=== PATIENT | male | born 1955 | race Caucasian/White ===

== ENCOUNTER 2017-04-04 21:36 | Emergency (ER) | payer BC ==
[2017-04-04] MEDS ORDERED: Ciprofloxacin 500 MG Tab PO ONE (21:57)
[2017-04-04] MEDS ORDERED: metroNIDAZOLE 500 MG Tab PO ONE ×2 (21:58→22:38)
--- NOTE | 2017-04-04 22:04 | EDM.PDOC ---
ED HPI GENERAL MEDICAL PROBLEM - General Chief Complaint: Gastrointestinal Problem Stated Complaint: DIVERTICULITIS Time Seen by Provider: 04/04/17 21:50 Source of Information: Reports: Patient, Old Records History Limitations: Reports: No Limitations - History of Present Illness INITIAL COMMENTS - FREE TEXT/NARRATIVE: 61 yo male presents with onset early this evening of LLQ abdominal pain. Pain is almost gone if he holds still, but is worse with movement or coughing. No fever. No nausea. Had a good BM today. Pain does not move. Has a pHx of diverticulitis and this feels exactly like that. Took acetaminophen 1000 mg earlier this evening for the pain. Also has a hx of colon CA and if being followed for that. Onset: Today Onset Date: 04/04/17 Onset Time: 19:00 Duration: Hour(s):, Getting Worse Location: Reports: Abdomen (LLQ) Quality: Reports: Ache, Dull Severity: Mild (at rest, worse with movement.) Improves with: Reports: Rest Worsens with: Reports: Movement Context: Reports: Other (Has known diverticular dz and a hx of diverticulitis.) Associated Symptoms: Reports: No Other Symptoms. Denies: Fever/Chills, Nausea/ Vomiting Treatments [employer]: Reports: Acetaminophen - Related Data Allergies Allergy/AdvReac Type Severity Reaction Status Date / Time No Known Allergies Allergy Verified 04/04/17 21:51 Home Meds: Home Meds NK [No Known Home Meds] 04/04/17 [History] Social & Family History - Tobacco Use Smoking Status *Q: Never Smoker Years of Tobacco use: 25 Used Tobacco, but Quit: Yes Month Tobacco Last Used: Nov 27 2000. Second Hand Smoke Exposure: No - Alcohol Use Days Per Week of Alcohol Use: 8 Number of Drinks Per Day: 0 Total Drinks Per Week: 0 - Recreational Drug Use Recreational Drug Use: No ED ROS GENERAL - Review of Systems Review Of Systems: See Below Constitutional: Reports: Other (feels a little flushed.) HEENT: Reports: No Symptoms Respiratory: Reports: No Symptoms Cardiovascular: Reports: No Symptoms Endocrine: Reports: No Symptoms GI/Abdominal: Reports: Abdominal Pain (LLQ). Denies: Black Stool, Bloody Stool , Constipation, Diarrhea, Decreased Appetite, Distension, Hematemesis, Hematochezia, Melena, Nausea, Vomiting : Reports: No Symptoms Musculoskeletal: Reports: No Symptoms Skin: Reports: No Symptoms Neurological: Reports: No Symptoms Psychiatric: Reports: No Symptoms ED EXAM, GI/ABD - Physical Exam Exam: See Below Exam Limited By: No Limitations General Appearance: Alert, WD/WN, No Apparent Distress Eyes: Bilateral: Normal Appearance, EOMI Ears: Normal External Exam, Normal Canal, Hearing Grossly Normal, Normal TMs Nose: Normal Inspection, Normal Mucosa, No Blood Throat/Mouth: Normal Inspection, Normal Lips, Normal Teeth, Normal Oropharynx, Normal Voice, No Airway Compromise Head: Atraumatic, Normocephalic Neck: Normal Inspection, Supple Respiratory/Chest: No Respiratory Distress, Lungs Clear, Normal Breath Sounds, No Accessory Muscle Use Cardiovascular: Regular Rate, Rhythm GI/Abdominal Exam: Normal Bowel Sounds, Soft, No Distention, Rebound (mild), Tender (LLQ with palpation.). No: Distended Back Exam: Normal Inspection. No: CVA Tenderness (R), CVA Tenderness (L) Extremities: Normal Inspection, Normal Range of Motion, Non-Tender, No Pedal Edema Neurological: Alert, Oriented, CN II-XII Intact, Normal Cognition, Normal Gait, No Motor/Sensory Deficits Psychiatric: Normal Affect, Normal Mood Skin Exam: Warm, Dry, Intact, Normal Color, No Rash Lymphatic: No Adenopathy Course - Vital Signs Last Recorded V/S: Last Vital Signs Temp 36.6 C 04/04/17 21:45 Pulse 104 H 04/04/17 21:45 Resp 20 04/04/17 21:45 BP 148/105 H 04/04/17 21:45 Pulse Ox 98 04/04/17 21:45 - Orders/Labs/Meds Orders: Active Orders 24 hr Category Date Time Status CRP [C-REACTIVE PROTEIN] [CHEM] Stat Lab 04/04/17 22:00 Received Labs: Laboratory Tests 04/04/17 Range/Units 22:00 WBC 9.8 (4.5-12.0) X10-3/uL RBC 4.73 (4.30-5.75) x10(6)uL Hgb 15.2 (11.5-15.5) g/dL Hct 44.6 (30.0-51.3) % MCV 94.4 (80-96) fL MCH 32.1 (27.7-33.6) pg MCHC 34.0 (32.2-35.4) g/dL RDW 14.0 (11.5-15.5) % Plt Count 218 (125-369) X10(3)uL Meds: Medications Discontinued Medications Generic Name Dose Route Start Last Admin Trade Name Gutierrez PRN Reason Stop Dose Admin Ciprofloxacin 500 mg 04/04/17 21:57 04/04/17 22:07 Ciprofloxacin Hcl PO 04/04/17 21:58 500 mg ONETIME ONE Administration Metronidazole 500 mg 04/04/17 21:58 04/04/17 22:07 Flagyl PO 04/04/17 21:59 500 mg ONETIME ONE Administration Departure - Departure Time of Disposition: 22:45 Disposition: Home, Self-Care 01 Condition: Fair Clinical Impression: Diverticulitis - Discharge Information Referrals: Reid Milan MD [Primary Care Provider] - Forms: ED Department Discharge - My Orders Last 24 Hours: My Active Orders 04/04/17 22:00 CRP [C-REACTIVE PROTEIN] [CHEM] Stat - Assessment/Plan Last 24 Hours: My Active Orders 04/04/17 22:00 CRP [C-REACTIVE PROTEIN] [CHEM] Stat
[2017-04-04 23:06] VITALS: BP 135/96
== END 2017-04-04 22:52 | disposition home or self-care (01) ==
LOC: FB.ED 21:36
DX: K57.92 Diverticulitis of intestine, part unspecified, without perforation or abscess without bleeding (principal)
CPT/HCPCS: 36415; 85027; 86140; 99284; A9270

== ENCOUNTER 2018-01-22 09:22 | Observation (INO) | payer BC ==
[2018-01-22] MEDS: Sodium Chloride 0.9% 10 ML Syringe FLUSH PRN ×3 (09:30→11:54)
[2018-01-22] MEDS ORDERED: Labetalol 20 MG/4 ML Syringe IVPUSH ONE ×2 (09:34→11:36)
--- NOTE | 2018-01-22 09:38 | EDM.PDOC ---
ED HPI GENERAL MEDICAL PROBLEM - General Stated Complaint: CONFUSSION- LIGHT HEADED Time Seen by Provider: 01/22/18 09:22 Source of Information: Reports: Patient, Family History Limitations: Reports: Altered Mental Status - History of Present Illness INITIAL COMMENTS - FREE TEXT/NARRATIVE: 62 y.o.m with h/o Colon CA with mets to liver came to the ed with his to the ed because her , the pt, was confused. Pt's BP was 185/155 on arrival. Pt felt mildly nauseated, no C/P No H/A no F/C no neurological symptoms , no focal weakness.no other acute medical issues. Pt underwent chemoTx recently BP 185/154 Pulse 91 Temp 36.7 RR 18 Onset Date: 01/22/18 Onset Time: 07:00 Duration: Intermittent Location: Reports: Head Quality: Reports: Other (confused) Improves with: Reports: Rest Worsens with: Reports: Movement Context: Reports: Other (HTN.Colon CA) Associated Symptoms: Reports: Confusion, Nausea/Vomiting - Related Data Allergies Allergy/AdvReac Type Severity Reaction Status Date / Time No Known Allergies Allergy Verified 01/22/18 09:41 Home Meds: Home Meds Aspirin 81 mg PO DAILY 01/22/18 [History] Losartan/Hydrochlorothiazide [Losartan-HCTZ 50-12.5 MG] 1 each PO DAILY #10 tablet 01/22/18 [Rx] Multivitamin [Multi-Day Vitamins] 1 tab PO DAILY 01/22/18 [History] Tolterodine Tartrate [Tolterodine Tartrate ER] 4 mg PO DAILY 01/22/18 [History] Past Medical History Cardiovascular History: Reports: Hypertension, Other (See Below) Other Cardiovascular History: Was on BP medication for hypertension prior to chemotherapy treatments. Gastrointestinal History: Reports: Diverticulosis, Other (See Below) Other Gastrointestinal History: Known diverticulosis for about 15 years. Oncologic (Cancer) History: Reports: Other (See Below) Other Oncologic History: Colorectal Cancer with metastasis. - Past Surgical History Other GI Surgeries/Procedures: States he has received chemotherapy for colorectal cancer couple years past. Then had surgery in October 2016 for liver metastasis and again in December 2016 for lung metastasis. The follow up CT showed he continued to have diverticulosis. Neurological Surgical History: Reports: Other (See Below) Other Neurological Surgeries/Procedures: Neck fusion 2013. ED ROS GENERAL - Review of Systems Review Of Systems: Unable To Obtain (confusion) ED EXAM, NEURO - Physical Exam Exam: See Below Exam Limited By: Altered Mental Status General Appearance: Alert, WD/WN, No Apparent Distress, Mild Distress Eye Exam: Bilateral Eye: Normal Inspection Ears: Normal External Exam, Normal Canal Nose: Normal Inspection, Normal Mucosa, No Blood Throat/Mouth: Normal Inspection, Normal Lips, Normal Voice, No Airway Compromise Head Exam: Atraumatic, Normocephalic Neck: Normal Inspection, Supple, Non-Tender, Full Range of Motion Respiratory/Chest: No Respiratory Distress, Lungs Clear, Normal Breath Sounds, Chest Non-Tender Cardiovascular: Normal Peripheral Pulses, Regular Rate, Rhythm, No Edema, No Gallop, No JVD, No Murmur, No Rub GI/Abdominal: Normal Bowel Sounds, Soft, Non-Tender, No Organomegaly, No Distention, No Abnormal Bruit, No Mass, Pelvis Stable (Male) Exam: Deferred Rectal (Males) Exam: Deferred Neurological: Alert, Normal Mood/Affect, Normal Dorsiflexion, CN II-XII Intact, Normal Gait, No Motor/Sensory Deficits, Oriented x 3, Difficulty Walking Back Exam: Normal Inspection, Full Range of Motion Extremities: Normal Inspection, Normal Range of Motion, Non-Tender, No Pedal Edema, Normal Capillary Refill Psychiatric: Normal Affect, Normal Mood Skin Exam: Warm, Dry, Intact, Normal Color, No Rash EKG INTERPRETATION EKG Date: 01/22/18 Time: 09:35 Rhythm: NSR Rate (Beats/Min): 91 [place]: Normal P-Wave: Present QRS: Normal ST-T: Normal QT: Normal Comparison: NA - No Prior EKG Course - Vital Signs Text/Narrative:: 62 y.o.m with h/o Colon CA with mets to liver came to the ed with his to the ed because her , the pt, was confused. Pt's BP was 185/155 on arrival. Pt felt mildly nauseated, no C/P No H/A no F/C no neurological symptoms , no focal weakness.no other acute medical issues. Pt underwent chemoTx recently BP 185/154 Pulse 91 Temp 36.7 RR 18 PE: WNWD W M with confusion to situation, time and person Labs: CBC/BMP WNL UA was neg Chol/HDL was elevated Tricl was elevated Ca 8.4 Impression: Hypertensive encephalopathy H/O Colon CA with mets to liver, on chemaTx Tx: Labetotol Reexam: Improved BP was 155/86 ofter tx. However, before the pt was d/c'd, he felt dizzy and confused again. His recheck BP was 175/87 12.30 pm Consultation: Dr. Milan, Hospitalist: Accepted the pt for admission to obs Plan: Admit to hong. Last Recorded V/S: Last Vital Signs Temp 36.6 C 01/22/18 14:05 Pulse 88 01/22/18 14:05 Resp 20 01/22/18 14:05 BP 119/83 01/22/18 14:05 Pulse Ox 95 01/22/18 14:05 Orthostatic Blood Pressure [ 149/100 Standing] Orthostatic Blood Pressure [ 144/97 Sitting] Orthostatic Blood Pressure [ 151/98 Supine] - Orders/Labs/Meds Orders: Active Orders 24 hr Category Date Time Status Orthostatic Vital Signs [RC] ASDIRECTED Care 01/22/18 10:24 Active Brain w wo Cont [MR] Stat Exams 01/22/18 11:25 Taken Head wo Cont [CT] Stat Exams 01/22/18 09:29 Taken UA W/MICROSCOPIC [URIN] Stat Lab 01/22/18 10:39 Ordered Sodium Chloride 0.9% [Saline Flush] Med 01/22/18 09:34 Active 10 ml FLUSH ASDIRECTED PRN Peripheral IV Insertion Adult [OM.PC] Routine Oth 01/22/18 09:34 Ordered EKG 12 Lead [EK] Routine Ther 01/22/18 09:29 Ordered Medication Orders Acetaminophen (Tylenol) 650 mg PO Q4H PRN PRN Reason: Pain Last Admin: 01/22/18 14:44 Dose: 650 mg HCTZ/Losartan Potassium (Hyzaar 100-25 Mg) 0.5 tab PO DAILY KRISTOPHER Last Admin: 01/22/18 14:30 Dose: Sodium Chloride (Saline Flush) 10 ml FLUSH ASDIRECTED PRN PRN Reason: Keep Vein Open Last Admin: 01/22/18 11:54 Dose: 10 ml Admin: 01/22/18 11:45 Dose: 10 ml Admin: 01/22/18 09:30 Dose: 10 ml Labs: Laboratory Tests 01/22/18 01/22/18 01/22/18 Range/Units 09:55 09:55 09:55 WBC 6.1 (4.5-12.0) X10-3/uL RBC 5.01 (4.30-5.75) x10(6)uL Hgb 16.3 H (11.5-15.5) g/dL Hct 48.0 (30.0-51.3) % MCV 95.9 (80-96) fL MCH 32.5 (27.7-33.6) pg MCHC 33.8 (32.2-35.4) g/dL RDW 12.9 (11.5-15.5) % Plt Count 218 (125-369) X10(3)uL MPV 7.4 (7.4-10.4) fL Neut % (Auto) 46.2 (46-82) % Lymph % (Auto) 35.4 (13-37) % [place] % (Auto) 12.6 H (4-12) % Eos % (Auto) 5 (1.0-5.0) % Baso % (Auto) 1 (0-2) % Neut # (Auto) 2.9 (1.6-8.3) # Lymph # (Auto) 2.1 (0.6-5.0) # [place] # (Auto) 0.8 (0.0-1.3) # Eos # (Auto) 0.3 (0.0-0.8) # Baso # (Auto) 0.0 (0.0-0.2) # PT 9.8 (8.7-11.1) INR 1.01 (0.89-1.13) Sodium 138 (135-145) mmol/L Potassium 4.3 (3.5-5.3) mmol/L Chloride 101 (100-110) mmol/L Carbon Dioxide 31 (21-32) mmol/L BUN 14 (7-18) mg/dL Creatinine 1.1 (0.70-1.30) mg/dL Est Cr Clr Drug Dosing TNP Estimated GFR (MDRD) > 60 (>60) BUN/Creatinine Ratio 12.7 (9-20) Glucose 115 (80-116) mg/dL Calcium 8.4 L (8.6-10.2) mg/dL Triglycerides (15-150) mg/dL Cholesterol (50-200) mg/dL LDL Cholesterol Direct (60-130) mg/dL HDL Cholesterol (40-75) mg/dL Cholesterol/HDL Ratio (0-5) Urine Color (YELLOW) Urine Appearance (CLEAR) Urine pH (5.0-6.5) Ur Specific [place] (1.010-1.025) Urine Protein (NEGATIVE) mg/dL Urine Glucose (UA) (NEGATIVE) mg/dL Urine Ketones (NEGATIVE) mg/dL Urine Occult Blood (NEGATIVE) Urine Nitrite (NEGATIVE) Urine Bilirubin (NEGATIVE) Urine Urobilinogen (NEGATIVE) mg/dL Ur Leukocyte Esterase (NEGATIVE) Urine WBC (0) Ur Squamous Epith Cells (NS,R,O) Urine Bacteria (NS) 01/22/18 01/22/18 Range/Units 09:55 10:39 WBC (4.5-12.0) X10-3/uL RBC (4.30-5.75) x10(6)uL Hgb (11.5-15.5) g/dL Hct (30.0-51.3) % MCV (80-96) fL MCH (27.7-33.6) pg MCHC (32.2-35.4) g/dL RDW (11.5-15.5) % Plt Count (125-369) X10(3)uL MPV (7.4-10.4) fL Neut % (Auto) (46-82) % Lymph % (Auto) (13-37) % [place] % (Auto) (4-12) % Eos % (Auto) (1.0-5.0) % Baso % (Auto) (0-2) % Neut # (Auto) (1.6-8.3) # Lymph # (Auto) (0.6-5.0) # [place] # (Auto) (0.0-1.3) # Eos # (Auto) (0.0-0.8) # Baso # (Auto) (0.0-0.2) # PT (8.7-11.1) INR (0.89-1.13) Sodium (135-145) mmol/L Potassium (3.5-5.3) mmol/L Chloride (100-110) mmol/L Carbon Dioxide (21-32) mmol/L BUN (7-18) mg/dL Creatinine (0.70-1.30) mg/dL Est Cr Clr Drug Dosing Estimated GFR (MDRD) (>60) BUN/Creatinine Ratio (9-20) Glucose (80-116) mg/dL Calcium (8.6-10.2) mg/dL Triglycerides 195 H (15-150) mg/dL Cholesterol 197 (50-200) mg/dL LDL Cholesterol Direct 126 (60-130) mg/dL HDL Cholesterol 38 L (40-75) mg/dL Cholesterol/HDL Ratio 5.2 H (0-5) Urine Color Yellow (YELLOW) Urine Appearance Clear (CLEAR) Urine pH 5.0 (5.0-6.5) Ur Specific [place] 1.020 (1.010-1.025) Urine Protein Negative (NEGATIVE) mg/dL Urine Glucose (UA) Normal (NEGATIVE) mg/dL Urine Ketones Negative (NEGATIVE) mg/dL Urine Occult Blood Negative (NEGATIVE) Urine Nitrite Negative (NEGATIVE) Urine Bilirubin Negative (NEGATIVE) Urine Urobilinogen Normal (NEGATIVE) mg/dL Ur Leukocyte Esterase Negative (NEGATIVE) Urine WBC 0-5 (0) Ur Squamous Epith Cells Occasional (NS,R,O) Urine Bacteria Few H (NS) Meds: Medications Generic Name Dose Route Start Last Admin Trade Name Freq PRN Reason Stop Dose Admin Acetaminophen 650 mg 01/22/18 14:31 01/22/18 14:44 Tylenol PO 650 mg Q4H PRN Administration Pain HCTZ/Losartan Potassium 0.5 tab 01/22/18 14:00 01/22/18 14:30 Hyzaar 100-25 Mg PO Not Given DAILY KRISTOPHER Sodium Chloride 10 ml 01/22/18 09:34 01/22/18 11:54 Saline Flush FLUSH 10 ml ASDIRECTED PRN Administration Keep Vein Open Discontinued Medications Generic Name Dose Route Start Last Admin Trade Name Freq PRN Reason Stop Dose Admin Gadoteridol 20 ml 01/22/18 12:15 01/22/18 12:31 Prohance IV 20 ml . DIRECTED KRISTOPHER Administration HCTZ/Losartan Potassium 1 tab 01/22/18 12:45 Hyzaar 100-25 Mg PO DAILY KRISTOPHER Labetalol HCl 10 mg 01/22/18 09:34 01/22/18 09:55 Normodyne IVPUSH 01/22/18 09:35 10 mg ONETIME ONE Administration Protocol Labetalol HCl 10 mg 01/22/18 11:36 01/22/18 11:45 Normodyne IVPUSH 01/22/18 11:37 10 mg ONETIME ONE Administration Protocol Lorazepam 0.5 mg 01/22/18 11:43 01/22/18 11:50 Ativan IVPUSH 01/22/18 11:44 0.5 mg ONETIME STA Administration Ondansetron HCl 8 mg 01/22/18 10:18 01/22/18 11:16 Zofran IVPUSH 01/22/18 10:19 Not Given ONETIME STA Departure - Departure Time of Disposition: 11:14 Disposition: Refer to Observation Condition: Good Clinical Impression: Hypertensive encephalopathy - Discharge Information - My Orders Last 24 Hours: My Active Orders 01/22/18 09:29 Head wo Cont [CT] Stat EKG 12 Lead [EK] Routine 01/22/18 09:34 Sodium Chloride 0.9% [Saline Flush] 10 ml FLUSH ASDIRECTED PRN Peripheral IV Insertion Adult [OM.PC] Routine 01/22/18 10:24 Orthostatic Vital Signs [RC] ASDIRECTED 01/22/18 10:39 UA W/MICROSCOPIC [URIN] Stat 01/22/18 11:25 Brain w wo Cont [MR] Stat - Assessment/Plan Last 24 Hours: My Active Orders 01/22/18 09:29 Head wo Cont [CT] Stat EKG 12 Lead [EK] Routine 01/22/18 09:34 Sodium Chloride 0.9% [Saline Flush] 10 ml FLUSH ASDIRECTED PRN Peripheral IV Insertion Adult [OM.PC] Routine 01/22/18 10:24 Orthostatic Vital Signs [RC] ASDIRECTED 01/22/18 10:39 UA W/MICROSCOPIC [URIN] Stat 01/22/18 11:25 Brain w wo Cont [MR] Stat
[2018-01-22] MEDS ORDERED: Ondansetron 4 MG/2 ML SDV IVPUSH STA (10:18)
[2018-01-22] MEDS ORDERED: LORazepam 2 MG/ML SDV IVPUSH STA (11:43)
[2018-01-22] MEDS ORDERED: Gadoteridol 279.3 MG/ML 20 ML SDV IV SCH (12:15)
[2018-01-22] MEDS ORDERED: Hydrochlorothiazide/Losartan 25-100 MG Tab PO SCH (12:45)
[2018-01-22] MEDS: Hydrochlorothiazide/Losartan 25-100 MG Tab PO SCH ×2 (14:30→19:11)
[2018-01-22] MEDS: Acetaminophen 325 MG Tab PO PRN (14:44)
[2018-01-22] MEDS: Aspirin 81 MG Tab.Chew PO SCH (20:25)
[2018-01-22] MEDS: Tolterodine 4 MG Cap.ER PO SCH (20:25)
[2018-01-23] MEDS: Acetaminophen 325 MG Tab PO PRN ×2 (02:48→08:16)
[2018-01-23] MEDS: Aspirin 81 MG Tab.Chew PO SCH (08:15)
[2018-01-23] MEDS: Hydrochlorothiazide/Losartan 25-100 MG Tab PO SCH (08:16)
[2018-01-23] MEDS: Tolterodine 4 MG Cap.ER PO SCH (08:16)
[2018-01-23 12:01] VITALS: BP 137/94
--- NOTE | 2018-01-23 15:56 | HP ---
ADMISSION DATE: 01/22/2018 HISTORY OF PRESENT ILLNESS: Harshad Pendleton is a 62-year-old male, [place] resident, was seen at ER at [facility] with an acute onset of confusional state. left this morning. No particular complaints or concerns. had been at work for about 20 minutes, called wondering about a shirt that was hanging. Explanation was that it needed to be dried and ironed. Discussion about the evening's event, i.e. a neighborhood democrat, were discussed. The patient had little recall of the event and reminded appropriately. Called back a few minutes later to his at work and stated he did not feel well. He had nausea, fatigue, lethargic, headache, and was confused. Acute in onset. Seen at [facility], at that time blood pressure was markedly elevated, he had absent orientation to time, place, person, circumstances, and who was our president. Blood pressure was elevated and was given intravenous dose of beta- nicky with improving symptoms. Laboratory studies were performed and all were satisfactory. CT without contrast was normal. MRI without contrast was normal. History of metastatic colon cancer, under surveillance at [facility], Dr. Arline Ruiz provider of record. The second dose of intravenous beta nicky was applied and blood pressure improved, was admitted for observation. At the time of my examination in the hospital, he was clear, lucent, and appropriate without complaints. He does have a history of migraine or migraine equivalents, particularly ophthalmic in nature. None of similar issues. Cardiovascular risk factors, of course, are concern of age, previous cancer. Nonsmoker, not diabetic and not hypertensive, but previous history of high blood pressure. Treatment in the past had been for some duration since he had been off it. Previous laboratory studies reviewed, [facility], no blood sugar greater than 107. Blood pressure normalized, observation and intervention. Present daily medications include Detrol LA 4 mg one p.o. daily, BPH, and multivitamin. Past history is significant for diagnosed about 3 years ago of colon cancer. Surgical intervention, recurrence of left lung, underwent lung cancer lobectomy at [place]. Things have been quiet since that time. Followup colonoscopies have been comfortable. There has been a mild elevation of his CE antigen on 12/24/2017. One year ago, it was 17.5; 7 months ago of 2.3; 4 months ago of 4.7; and in December 2017 of 7.1. ALLERGIES: No medication, environmental, or latex allergies. PAST MEDICAL HISTORY: Significant for previous colon cancer surgery and recent lung resection for cancer. He has had a cervical fusion, C4 through C6, in 2013; most recent endoscopy by our records, 08/18/2016, normal. No chronic illnesses of consequence. SOCIAL HISTORY: Retired from the building industry. in good health, as are children. Former smoker, quit in 2000, [id number] history. Minimal alcohol consumption. No illicit drug use. FAMILY HISTORY: Negative for early heart disease, diabetes mellitus, or inheritable cancers. REVIEW OF SYSTEMS: CONSTITUTIONAL: Feeling well at the time of my exam. The patient oriented to time, place, and person. EYES: Sees well. EARS: Hears well. OROPHARYNX: Intact dentition. : Good voiding pattern. Nocturia x1. No blood in urine. SKIN: No open sores or lesions. CARDIOVASCULAR: Denies chest pain, palpitations, or syncope. GI: Bowels have been fine. No blood in the stools. Regular predictable stools. NEUROLOGIC: Please see HPI. History of migraines. MUSCULOSKELETAL: Repeat generalized joint complaints, particularly neck. PHYSICAL EXAMINATION: VITAL SIGNS: Stable. 119 to 134 systolic and 72 to 84 diastolic. Pulse 85, respirations 16, O2 saturation 94%, and 36.6. GENERAL: Appears comfortable. Orientated and appropriate. Speech was fluent. HEENT: Revealed funduscopic benign. Bright TMs. Clear nasal discharge. Mouth and oropharynx, clear. Tongue midline. Good gag reflex. NEUROLOGIC: Cranial nerves 2 through 12 were intact. NECK: Benign. Thyroid small. No adenopathy. Posterior neck, surgical scar, well healed. No carotid bruits. CHEST: Clear in all lung escobar. No adventitious sounds. HEART: Regular without ectopy or murmur. BREASTS: Normal male breasts. Port in the right upper chest wall identified. ABDOMEN: Large surgical scar, well-healed, without conflict. Umbilical hernia. Little weakness to the in portion of the surgical wound. No hepatosplenomegaly. : Normal male genitalia. RECTAL: Deferred. EXTREMITIES: Well perfused. Reflex symmetric. Sensation intact. Gait and station appropriate. ASSESSMENT: Acute confusional state; reactive blood pressure, likely, normal blood pressure ratio. PLAN: We will observe overnight, watch for any neurological symptoms of consequence. Watch his blood pressure closely. Proceed accordingly. /[id number] EMELY/INGA
--- NOTE | 2018-01-24 07:39 | DISCH ---
DISCHARGE DATE: 01/23/2018 HOSPITAL COURSE: Harshad Pendleton is a 62-year-old male, seen today for followup. He was observed overnight. He had a brief episode, maybe an hour and a half, of acute confusional state. Origin undetermined. CT normal and MRI normal. Laboratory studies unremarkable. He has had no arrhythmias and has been well overnight. Blood pressures have been satisfactory. PHYSICAL EXAMINATION: GENERAL: The patient was oriented to time, place, and person. NECK: Benign. Thyroid small. No carotid bruits. CHEST: Clear in all lung escobar. HEART: Regular. ABDOMEN: Benign. ASSESSMENT: Acute confusional state, brief duration; elevated blood pressure, likely reactive. PLAN: All looks well. Salt restriction, daily exercise, and complementary behavior. He will get a home blood pressure monitor machine. He will come in next week each day for blood pressure. We will do an ultrasound of his kidneys to look for renal artery stenosis and ultrasound of his carotids. In the meantime, continue aspirin 81 mg one daily, along with Detrol and appropriate care. /[id number] EMELY/INGA
== END 2018-01-23 11:55 | disposition home or self-care (01) ==
LOC: FB.ED 09:22 → UNDOADMOB 12:31 → FB.MS 12:31
PROVIDERS: ADMIT Family Medicine; ATTEND Family Medicine
DX: R41.0 Disorientation, unspecified (principal); I10 Essential (primary) hypertension; Z79.82 Long term (current) use of aspirin; Z87.891 Personal history of nicotine dependence
CPT/HCPCS: 36415; 70450; 70553; 80048; 80061; 81001; 85025; 85610; 93005; 96374; 96375; 96376; 99285; A9270; A9579; G0378; J2060; J7050

== ENCOUNTER 2019-01-05 04:24 | Emergency (ER) | payer OTHER ==
[2019-01-05] MEDS ORDERED: Sodium Chloride 0.9% 10 ML Syringe FLUSH PRN (04:49)
--- NOTE | 2019-01-05 04:58 | EDM.PDOC ---
ED HPI GENERAL MEDICAL PROBLEM - General Chief Complaint: Abdominal Pain Stated Complaint: SIDE PAIN Time Seen by Provider: 01/05/19 04:53 Source of Information: Reports: Patient History Limitations: Reports: No Limitations - History of Present Illness INITIAL COMMENTS - FREE TEXT/NARRATIVE: Presents with LLQ Abdominal pain, onset yesterday, denies N/V/D. Hospitalized 2 months ago @ [facility] for diverticular abscess, treated conservatively with antibiotics, no procedures were performed. Endorses chills, no fever. Currently being treated with chemotherapy for stage 4 colon cancer. Currently on Zithromax for URI. Onset Date: 01/04/19 Location: Reports: Abdomen Quality: Reports: Dull Severity: Moderate Associated Symptoms: Reports: Cough LLQ Pain Score (Numeric/FACES): 5 - Related Data Allergies Allergy/AdvReac Type Severity Reaction Status Date / Time No Known Allergies Allergy Verified 01/05/19 04:33 Home Meds: Home Meds Alclometasone Dipropionate 1 gm TP BID 01/05/19 [History] Azithromycin [Zithromax] 250 mg PO DAILY 01/05/19 [History] Fluocinonide [Lidex 0.05% Crm] 1 applic BID 01/05/19 [History] Gabapentin [Neurontin] 300 mg BEDTIME 01/05/19 [History] Polyethylene Glycol 3350 17 gm DAILY 01/05/19 [History] Tamsulosin [Tamsulosin 24 Hr] 0.4 mg PO BEDTIME 01/05/19 [History] Warfarin [Coumadin] 1.25 mg PO SUTUWETHSA 01/05/19 [History] cephALEXin [Cephalexin] 500 mg BID 01/05/19 [History] Past Medical History HEENT History: Reports: Impaired Vision Cardiovascular History: Reports: Blood Clots/VTE/DVT, Hypertension, Other (See Below). Denies: CAD Other Cardiovascular History: Was on BP medication for hypertension prior to chemotherapy treatments. Respiratory History: Reports: PE Gastrointestinal History: Reports: Diverticulosis, Other (See Below) Other Gastrointestinal History: Known diverticulosis for about 15 years. Oncologic (Cancer) History: Reports: Other (See Below) Other Oncologic History: Colorectal Cancer with metastasis to liver and lungs. - Past Surgical History Other GI Surgeries/Procedures: States he has received chemotherapy for colorectal cancer couple years past. Then had surgery in October 2016 for liver metastasis and again in December 2016 for lung metastasis. The follow up CT showed he continued to have diverticulosis. Neurological Surgical History: Reports: Other (See Below) Other Neurological Surgeries/Procedures: Neck fusion 2013. Social & Family History - Family History Family Medical History: Noncontributory - Tobacco Use Smoking Status *Q: Former Smoker Tobacco Use Within Last Twelve Months: No - Caffeine Use Caffeine Use: Reports: Coffee ED ROS GENERAL - Review of Systems Review Of Systems: ROS reveals no pertinent complaints other than HPI. ED EXAM, GI/ABD - Physical Exam Exam: See Below Exam Limited By: No Limitations General Appearance: Alert, WD/WN, No Apparent Distress Ears: Normal External Exam Nose: Normal Inspection Throat/Mouth: No Airway Compromise Head: Atraumatic, Normocephalic Neck: Normal Inspection Respiratory/Chest: No Respiratory Distress, Rhonchi Cardiovascular: No Murmur, Tachycardia GI/Abdominal Exam: Normal Bowel Sounds, Soft, No Distention, Tender (mild LLQ) Neurological: Alert, Normal Cognition, No Motor/Sensory Deficits Psychiatric: Normal Affect, Normal Mood EKG INTERPRETATION EKG Date: 01/05/19 Time: 04:50 Rhythm: Other (sinus tachycardia) Rate (Beats/Min): 118 [place]: Normal P-Wave: Present QRS: Normal ST-T: Normal QT: Normal Course - Vital Signs Last Recorded V/S: Last Vital Signs Temp 37.6 C 01/05/19 06:31 Pulse 110 H 01/05/19 06:31 Resp 18 01/05/19 06:31 BP 119/76 01/05/19 06:31 Pulse Ox 96 01/05/19 06:31 - Orders/Labs/Meds Orders: Active Orders 24 hr Category Date Time Status EKG Documentation Completion [RC] ASDIRECTED Care 01/05/19 04:49 Active Chest Abdomen Pelvis w Cont [CT] Stat Exams 01/05/19 04:58 Taken CULTURE BLOOD [BC] Urgent Lab 01/05/19 04:45 Received CULTURE BLOOD [BC] Urgent Lab 01/05/19 05:06 Received Piperacillin/Tazobactam [Zosyn] 3.375 gm Med 01/05/19 07:00 Active Sodium Chloride 0.9% [Normal Saline] 50 ml IV Q6H Sodium Chloride 0.9% [Normal Saline] 1,000 ml Med 01/05/19 06:51 Active IV .BOLUS Sodium Chloride 0.9% [Saline Flush] Med 01/05/19 04:49 Active 10 ml FLUSH ASDIRECTED PRN Blood Culture x2 Reflex Set [OM.PC] Urgent Oth 01/05/19 04:50 Ordered Saline Lock Insert [OM.PC] Routine Oth 01/05/19 04:49 Ordered EKG 12 Lead [EK] Stat Ther 01/05/19 04:49 Ordered Medication Orders Piperacillin Sod/Tazobactam (Sod 3.375 gm/ Sodium Chloride) 50 mls @ 100 mls/ hr IV Q6H KRISTOPHER Last Admin: 01/05/19 07:04 Dose: 100 mls/hr Sodium Chloride (Normal Saline) 1,000 mls @ 500 mls/hr IV .BOLUS ONE Stop: 01/05/19 08:50 Last Admin: 01/05/19 06:55 Dose: 500 mls/hr Sodium Chloride (Saline Flush) 10 ml FLUSH ASDIRECTED PRN PRN Reason: Keep Vein Open Last Admin: 01/05/19 05:05 Dose: 10 ml Labs: Laboratory Tests 01/05/19 01/05/19 01/05/19 Range/Units 04:45 04:45 04:45 WBC 14.0 H (4.5-12.0) X10-3/uL RBC 5.07 (4.30-5.75) x10(6)uL Hgb 16.3 (13.5-17.8) g/dL Hct 48.6 (30.0-51.3) % MCV 95.8 (80-96) fL MCH 32.2 (27.7-33.6) pg MCHC 33.6 (32.2-35.4) g/dL RDW 14.8 (11.5-15.5) % Plt Count 171 (125-369) X10(3)uL MPV 7.5 (7.4-10.4) fL Neut % (Auto) 67.5 (46-82) % Lymph % (Auto) 18.1 (13-37) % Banner % (Auto) 8.1 (4-12) % Eos % (Auto) 2 (1.0-5.0) % Baso % (Auto) 4 H (0-2) % Neut # (Auto) 9.5 H (1.6-8.3) # Lymph # (Auto) 2.5 (0.6-5.0) # Banner # (Auto) 1.1 (0.0-1.3) # Eos # (Auto) 0.3 (0.0-0.8) # Baso # (Auto) 0.6 H (0.0-0.2) # PT (8.7-11.1) INR (0.89-1.13) Sodium 139 (135-145) mmol/L Potassium 4.1 (3.5-5.3) mmol/L Chloride 102 (100-110) mmol/L Carbon Dioxide 26 (21-32) mmol/L BUN 12 (7-18) mg/dL Creatinine 1.3 (0.70-1.30) mg/dL Est Cr Clr Drug Dosing 59.67 mL/min Estimated GFR (MDRD) 56 L (>60) BUN/Creatinine Ratio 9.2 (9-20) Glucose 137 H (80-116) mg/dL Lactic Acid 1.5 (0.4-2.2) mmol/L Calcium 8.6 (8.6-10.2) mg/dL Total Bilirubin 0.8 (0.1-1.3) mg/dL AST 19 (5-25) IU/L ALT 34 (12-36) U/L Alkaline Phosphatase 104 (56-112) IU/L Total Protein 7.2 (6.0-8.0) g/dL Albumin 3.6 (3.2-4.6) g/dL Globulin 3.6 g/dL Albumin/Globulin Ratio 1.0 Amylase 70 (25-115) U/L Urine Color (YELLOW) Urine Appearance (CLEAR) Urine pH (5.0-6.5) Ur Specific Coy (1.010-1.025) Urine Protein (NEGATIVE) mg/dL Urine Glucose (UA) (NORMAL) mg/dL Urine Ketones (NEGATIVE) mg/dL Urine Occult Blood (NEGATIVE) Urine Nitrite (NEGATIVE) Urine Bilirubin (NEGATIVE) Urine Urobilinogen (NEGATIVE) mg/dL Ur Leukocyte Esterase (NEGATIVE) Urine RBC (0-5) Urine WBC (0-5) Ur Squamous Epith Cells (NS,R,O) Urine Bacteria (NS) Urine Mucus (NS) 01/05/19 01/05/19 Range/Units 04:45 05:20 WBC (4.5-12.0) X10-3/uL RBC (4.30-5.75) x10(6)uL Hgb (13.5-17.8) g/dL Hct (30.0-51.3) % MCV (80-96) fL MCH (27.7-33.6) pg MCHC (32.2-35.4) g/dL RDW (11.5-15.5) % Plt Count (125-369) X10(3)uL MPV (7.4-10.4) fL Neut % (Auto) (46-82) % Lymph % (Auto) (13-37) % Banner % (Auto) (4-12) % Eos % (Auto) (1.0-5.0) % Baso % (Auto) (0-2) % Neut # (Auto) (1.6-8.3) # Lymph # (Auto) (0.6-5.0) # Banner # (Auto) (0.0-1.3) # Eos # (Auto) (0.0-0.8) # Baso # (Auto) (0.0-0.2) # PT 23.2 H (8.7-11.1) INR 2.41 H (0.89-1.13) Sodium (135-145) mmol/L Potassium (3.5-5.3) mmol/L Chloride (100-110) mmol/L Carbon Dioxide (21-32) mmol/L BUN (7-18) mg/dL Creatinine (0.70-1.30) mg/dL Est Cr Clr Drug Dosing mL/min Estimated GFR (MDRD) (>60) BUN/Creatinine Ratio (9-20) Glucose (80-116) mg/dL Lactic Acid (0.4-2.2) mmol/L Calcium (8.6-10.2) mg/dL Total Bilirubin (0.1-1.3) mg/dL AST (5-25) IU/L ALT (12-36) U/L Alkaline Phosphatase (56-112) IU/L Total Protein (6.0-8.0) g/dL Albumin (3.2-4.6) g/dL Globulin g/dL Albumin/Globulin Ratio Amylase (25-115) U/L Urine Color Yellow (YELLOW) Urine Appearance Clear (CLEAR) Urine pH 5.0 (5.0-6.5) Ur Specific Coy 1.020 (1.010-1.025) Urine Protein Trace (NEGATIVE) mg/dL Urine Glucose (UA) Normal (NORMAL) mg/dL Urine Ketones 15 H (NEGATIVE) mg/dL Urine Occult Blood Moderate H (NEGATIVE) Urine Nitrite Negative (NEGATIVE) Urine Bilirubin Small H (NEGATIVE) Urine Urobilinogen Normal (NEGATIVE) mg/dL Ur Leukocyte Esterase Negative (NEGATIVE) Urine RBC 5-10 H (0-5) Urine WBC 0-5 (0-5) Ur Squamous Epith Cells Occasional (NS,R,O) Urine Bacteria Few H (NS) Urine Mucus Moderate H (NS) Meds: Medications Generic Name Dose Route Start Last Admin Trade Name Freq PRN Reason Stop Dose Admin Piperacillin Sod/Tazobactam 50 mls @ 100 mls/hr 01/05/19 07:00 01/05/19 07:04 Sod 3.375 gm/ Sodium Chloride IV 100 mls/hr Q6H KRISTOPHER Administration Sodium Chloride 1,000 mls @ 500 mls/hr 01/05/19 06:51 01/05/19 06:55 Normal Saline IV 01/05/19 08:50 500 mls/hr .BOLUS ONE Administration Sodium Chloride 10 ml 01/05/19 04:49 01/05/19 05:05 Saline Flush FLUSH 10 ml ASDIRECTED PRN Administration Keep Vein Open Discontinued Medications Generic Name Dose Route Start Last Admin Trade Name Freq PRN Reason Stop Dose Admin Iopamidol 150 ml 01/05/19 05:32 01/05/19 05:47 Isovue-370 (76%) IV 01/05/19 05:33 142 ml ONETIME ONE Administration - Radiology Interpretation Free Text/Narrative:: CT Abd/Pelvis w/ IV contrast: 5.7 cm extraluminal collection of fluid and gas adjacent to the proximal sigmoid colon with regional stranding and edema, consistent with perforation and abscess, which could be related to diverticulitis or a perforated regional neoplasm. A 1.9 cm right pulmonary density and additional pulmonary nodules. - Re-Assessments/Exams Free Text/Narrative Re-Assessment/Exam: 01/05/19 07:18 Dr. Mcgovern (general surgeon) accepts patient for transfer to [facility]. Departure - Departure Time of Disposition: 07:20 Disposition: DC/Tfer to Acute Hospital 02 Condition: Fair Clinical Impression: Diverticular disease of intestine with perforation and abscess, Colorectal cancer, stage IV - Discharge Information *PRESCRIPTION DRUG MONITORING PROGRAM REVIEWED*: No *COPY OF PRESCRIPTION DRUG MONITORING REPORT IN PATIENT CHAZ: Not Applicable Referrals: Reid Milan MD [Primary Care Provider] - Forms: ED Department Discharge - My Orders Last 24 Hours: My Active Orders 01/05/19 04:45 CULTURE BLOOD [BC] Urgent 01/05/19 04:49 EKG Documentation Completion [RC] ASDIRECTED Sodium Chloride 0.9% [Saline Flush] 10 ml FLUSH ASDIRECTED PRN Saline Lock Insert [OM.PC] Routine EKG 12 Lead [EK] Stat 01/05/19 04:50 Blood Culture x2 Reflex Set [OM.PC] Urgent 01/05/19 04:58 Chest Abdomen Pelvis w Cont [CT] Stat 01/05/19 05:06 CULTURE BLOOD [BC] Urgent 01/05/19 06:51 Sodium Chloride 0.9% [Normal Saline] 1,000 ml IV .BOLUS 01/05/19 07:00 Piperacillin/Tazobactam [Zosyn] 3.375 gm Sodium Chloride 0.9% [Normal Saline] 50 ml IV Q6H - Assessment/Plan Last 24 Hours: My Active Orders 01/05/19 04:45 CULTURE BLOOD [BC] Urgent 01/05/19 04:49 EKG Documentation Completion [RC] ASDIRECTED Sodium Chloride 0.9% [Saline Flush] 10 ml FLUSH ASDIRECTED PRN Saline Lock Insert [OM.PC] Routine EKG 12 Lead [EK] Stat 01/05/19 04:50 Blood Culture x2 Reflex Set [OM.PC] Urgent 01/05/19 04:58 Chest Abdomen Pelvis w Cont [CT] Stat 01/05/19 05:06 CULTURE BLOOD [BC] Urgent 01/05/19 06:51 Sodium Chloride 0.9% [Normal Saline] 1,000 ml IV .BOLUS 01/05/19 07:00 Piperacillin/Tazobactam [Zosyn] 3.375 gm Sodium Chloride 0.9% [Normal Saline] 50 ml IV Q6H
[2019-01-05] MEDS ORDERED: Iopamidol 755 MG/ML 150 ML Bottle IV ONE (05:32)
[2019-01-05] MEDS ORDERED: Sodium Chloride 0.9% 1,000 ML IV ONE (06:51)
[2019-01-05] MEDS ORDERED: Piperacillin/Tazobactam 3.375 GM in Sodium Chloride 0.9% 50 ML IV SCH (07:00)
[2019-01-05 07:37] VITALS: BP 134/79
== END 2019-01-05 07:57 ==
LOC: FB.ED 04:24
DX: K57.20 Diverticulitis of large intestine with perforation and abscess without bleeding (principal); C18.9 Malignant neoplasm of colon, unspecified; Z79.899 Other long term (current) drug therapy; Z87.891 Personal history of nicotine dependence
CPT/HCPCS: 36415; 71260; 74177; 80053; 81001; 82150; 83605; 85025; 85610; 87040; 93005; 96365; 99285; J2543; J7030; J7050; Q9967

== ENCOUNTER 2020-04-03 11:10 | Emergency (ER) | payer OTHER ==
[2020-04-03] MEDS ORDERED: Metoclopramide 10 MG/2 ML SDV IVPUSH ONE (12:00)
[2020-04-03] MEDS ORDERED: Ketorolac 30 MG/ML SDV IVPUSH ONE (12:00)
[2020-04-03] MEDS ORDERED: HYDROmorphone 2 MG/ML SDV IVPUSH ONE (12:00)
[2020-04-03] MEDS ORDERED: Iopamidol 755 Mg/ML 100 ML Bottle IV ONE (12:33)
--- NOTE | 2020-04-03 14:09 | EDM.PDOC ---
ED HPI GENERAL MEDICAL PROBLEM - General Chief Complaint: General Stated Complaint: SOB Time Seen by Provider: 04/03/20 11:45 Source of Information: Reports: Patient, Family History Limitations: Reports: No Limitations - History of Present Illness INITIAL COMMENTS - FREE TEXT/NARRATIVE: c/o QUEZADA and L shoulder pain dx colon CA May 2014, last chem in spring with relapse CA, clinical trails are being considered no h/o CVA, on warfarin daily takes oxycodone 5 mg prn for pain, took none today QUEZADA L frontal 03/01, has path fx L scapula 3m ago, has 6/10 pain QUEZADA gone after Dilaudid 0.5 mg IV, Toradol 30 mg IV and Reglan 10 mg IV pt with HR 115-120 that did not decrease after 1 liter NS, no fever, no cough, no dyspnea, has RR up to 30 has port pt and request full code COVID neg on 03/17/20 stopped cigs 20y ago sob x 2w, L scapula pain, no CP, PO 93% on RA on arrival, inc'd 97% on 2 l/min NC, no cough, temp 98.8 on arrival HR 112 and BP 152/108 on arrival - Related Data Allergies Allergy/AdvReac Type Severity Reaction Status Date / Time No Known Allergies Allergy Verified 01/05/19 04:33 Home Meds: Home Meds Alclometasone Dipropionate 1 gm TP BID 01/05/19 [History] Fluocinonide [Lidex 0.05% Crm] 1 applic TOP BID 01/05/19 [History] Gabapentin [Neurontin] 300 mg PO BEDTIME 01/05/19 [History] Tamsulosin [Tamsulosin 24 Hr] 0.4 mg PO BEDTIME 01/05/19 [History] Warfarin [Coumadin] 1.25 mg PO SUTUWETHSA 01/05/19 [History] Acetaminophen 1,000 mg PO Q6H 02/07/19 [History] Enoxaparin [Lovenox] 120 mg SQ BID 02/07/19 [History] Sennosides/Docusate Sodium [Senna-Docusate Sodium Tablet] 1 tab PO BID PRN 02/07/19 [History] oxyCODONE 5 mg PO Q4H PRN 02/07/19 [History] Past Medical History HEENT History: Reports: Impaired Vision Cardiovascular History: Reports: Blood Clots/VTE/DVT, Hypertension, Other (See Below). Denies: CAD Other Cardiovascular History: Was on BP medication for hypertension prior to chemotherapy treatments. Respiratory History: Reports: PE Other Respiratory History: lung CA Gastrointestinal History: Reports: Diverticulosis, Other (See Below) Other Gastrointestinal History: Known diverticulosis for about 15 years. Musculoskeletal History: Reports: Arthritis, Fracture Other Musculoskeletal History: hx L ankle fx Endocrine/Metabolic History: Reports: Obesity/BMI 30+ Oncologic (Cancer) History: Reports: Other (See Below) Other Oncologic History: Colorectal Cancer with metastasis to liver and lungs. Dermatologic History: Reports: Other (See Below) Other Dermatologic History: chemo rash - Infectious Disease History Infectious Disease History: Reports: Measles - Past Surgical History Other GI Surgeries/Procedures: States he has received chemotherapy for colorectal cancer couple years past. Then had surgery in October 2016 for liver metastasis and again in December 2016 for lung metastasis. The follow up CT showed he continued to have diverticulosis. Neurological Surgical History: Reports: Other (See Below) Other Neurological Surgeries/Procedures: Neck fusion 2013. Social & Family History - Family History Family Medical History: Noncontributory - Caffeine Use Caffeine Use: Reports: Coffee ED ROS GENERAL - Review of Systems Review Of Systems: See Below Constitutional: Reports: No Symptoms. Denies: Fever HEENT: Reports: No Symptoms Respiratory: Reports: No Symptoms Cardiovascular: Reports: No Symptoms. Denies: Chest Pain Endocrine: Reports: No Symptoms GI/Abdominal: Reports: No Symptoms : Reports: No Symptoms Musculoskeletal: Reports: Other (L shoulder pain) Skin: Reports: No Symptoms Neurological: Reports: Headache Psychiatric: Reports: No Symptoms Hematologic/Lymphatic: Reports: No Symptoms Immunologic: Reports: No Symptoms ED EXAM, GENERAL - Physical Exam Exam: See Below Exam Limited By: No Limitations General Appearance: Alert, WD/WN, No Apparent Distress Eye Exam: Bilateral Eye: PERRL Ears: Hearing Grossly Normal Nose: Normal Inspection Throat/Mouth: Normal Voice, No Airway Compromise Head: Atraumatic Neck: Normal Inspection, Supple, Non-Tender, Full Range of Motion. No: Lymphadenopathy (R), Lymphadenopathy (L) Respiratory/Chest: Lungs Clear, Normal Breath Sounds, No Accessory Muscle Use, Chest Non-Tender Cardiovascular: Regular Rate, Rhythm, No Gallop, No Murmur GI/Abdominal: Soft, Non-Tender, No Distention Back Exam: Normal Inspection, Full Range of Motion. No: CVA Tenderness (R), CVA Tenderness (L) Extremities: Normal Inspection, Normal Range of Motion, Non-Tender, No Pedal Edema, Normal Capillary Refill Neurological: Alert, Oriented, CN II-XII Intact, Normal Cognition, Normal Gait, No Motor/Sensory Deficits, Other (ambulating without difficulty, m/s intact, sensorium clear on arrival, after Dilaudid 0.5 mg IV he was slightly lethargic and hesitated before answering questions c/w mild confusion although remained lucid with accurate communications) Psychiatric: Normal Affect, Normal Mood Skin Exam: Warm, Dry, Intact, Normal Color, No Rash Lymphatic: No Adenopathy Course - Orders/Labs/Meds Orders: Active Orders 24 hr Category Date Time Status Chest 2V [CR] Stat Exams 04/03/20 11:57 Taken Head wo Cont [CT] Stat Exams 04/03/20 11:57 Taken Shoulder Comp Lt [CR] Stat Exams 04/03/20 11:57 Taken URINALYSIS W/MICROSCOPIC [UA W/MICROSCOPIC] [URIN] Stat Lab 04/03/20 16:15 Ordered Heparin Sodium [Heparin Lock Flush 100 Units/ML] Med 04/03/20 15:52 Active 500 units FLUSH ASDIRECTED PRN Phytonadione [AquaMephyton] 10 mg Med 04/03/20 16:42 Active Sodium Chloride 0.9% [Normal Saline] 50 ml IV NOW Medication Orders Heparin Sodium (Porcine) (Heparin Lock Flush 100 Units/Ml) 500 units FLUSH ASDIRECTED PRN PRN Reason: Other Phytonadione 10 mg/ Sodium (Chloride) 51 mls @ 100 mls/hr IV NOW ONE Stop: 04/03/20 17:12 Labs: Laboratory Tests 04/03/20 Range/Units 16:00 PT 27.8 H (9.0-11.1) sec INR 2.75 H (1.00-1.24) Meds: Medications Generic Name Dose Route Start Last Admin Trade Name Freq PRN Reason Stop Dose Admin Heparin Sodium (Porcine) 500 units 04/03/20 15:52 Heparin Lock Flush 100 Units/Ml FLUSH ASDIRECTED PRN Other Phytonadione 10 mg/ Sodium 51 mls @ 100 mls/hr 04/03/20 16:42 Chloride IV 04/03/20 17:12 NOW ONE Discontinued Medications Generic Name Dose Route Start Last Admin Trade Name Gutierrez PRNeel Reason Stop Dose Admin Hydromorphone HCl 0.5 mg 04/03/20 12:00 04/03/20 12:04 Dilaudid IVPUSH 04/03/20 12:01 0.5 mg ONETIME ONE Administration Dexamethasone 20 mg/ Sodium 55 mls @ 200 mls/hr 04/03/20 15:41 04/03/20 16:17 Chloride IVPUSH 04/03/20 15:56 200 mls/hr ONETIME ONE Administration Iopamidol 100 ml 04/03/20 12:33 Isovue-370 (76%) IV 04/03/20 12:34 . DIRECTED ONE Ketorolac Tromethamine 30 mg 04/03/20 12:00 04/03/20 12:05 Toradol IVPUSH 04/03/20 12:01 30 mg ONETIME ONE Administration Metoclopramide HCl 10 mg 04/03/20 12:00 04/03/20 12:05 Reglan IVPUSH 04/03/20 12:01 10 mg ONETIME ONE Administration - Re-Assessments/Exams Free Text/Narrative Re-Assessment/Exam: 04/03/20 16:32 d/w Dr Cee heme-onc who said that pt would not be a candidate for an experimental protocol at [facility] or [facility] d/t brain mets he recommended MRI to distinguish blood from pt and report that he is full code although realistically he should be transitioned to hospice Dr Cee would defer on Keppra for the moment to prevent side effects altho w ould start if there is seizure activity, Dr Cee recommended dexamethasone 20 mg IV (ordered) followed by 6-10 mg PO/IV q6h per pt's , [place] is on vacation for 5 more days d/w Dr Coyne hospitalist who accepted him to [facility], assigned to room 736 CT head with a 1 cm L frontal met and 4 cm hemorrhage around met of unknown size in the L parietal-frontal area, last brain imaging was MRI 2y ago Departure - Departure Time of Disposition: 16:55 Disposition: DC/Tfer to Acute Hospital 02 Condition: Serious Clinical Impression: Cerebral hemorrhage, Brain metastases, Liver metastases, Bone metastases, Colorectal cancer, stage IV, Anticoagulant long-term use, Tachycardia, Ketonuria, Elevated LFTs, Hypoalbuminemia - Discharge Information *PRESCRIPTION DRUG MONITORING PROGRAM REVIEWED*: Not Applicable *COPY OF PRESCRIPTION DRUG MONITORING REPORT IN PATIENT CHAZ: Not Applicable Referrals: Jen Nunn MD [Primary Care Provider] - Forms: ED Department Discharge - My Orders Last 24 Hours: My Active Orders 04/03/20 11:57 Chest 2V [CR] Stat Head wo Cont [CT] Stat Shoulder Comp Lt [CR] Stat 04/03/20 15:52 Heparin Sodium [Heparin Lock Flush 100 Units/ML] 500 units FLUSH ASDIRECTED PRN 04/03/20 16:15 URINALYSIS W/MICROSCOPIC [UA W/MICROSCOPIC] [URIN] Stat 04/03/20 16:42 Phytonadione [AquaMephyton] 10 mg Sodium Chloride 0.9% [Normal Saline] 50 ml IV NOW - Assessment/Plan Last 24 Hours: My Active Orders 04/03/20 11:57 Chest 2V [CR] Stat Head wo Cont [CT] Stat Shoulder Comp Lt [CR] Stat 04/03/20 15:52 Heparin Sodium [Heparin Lock Flush 100 Units/ML] 500 units FLUSH ASDIRECTED PRN 04/03/20 16:15 URINALYSIS W/MICROSCOPIC [UA W/MICROSCOPIC] [URIN] Stat 04/03/20 16:42 Phytonadione [AquaMephyton] 10 mg Sodium Chloride 0.9% [Normal Saline] 50 ml IV NOW
[2020-04-03] MEDS: Phytonadione 10 MG in Sodium Chloride 0.9% 50 ML IV ONE ×2 (17:03→17:10)
[2020-04-03 20:40] VITALS: BP 152/105; PULSE 112
== END 2020-04-03 18:00 ==
LOC: FB.ED 11:10
DX: I61.9 Nontraumatic intracerebral hemorrhage, unspecified (principal); C19 Malignant neoplasm of rectosigmoid junction; C78.7 Secondary malignant neoplasm of liver and intrahepatic bile duct; C79.51 Secondary malignant neoplasm of bone; C79.31 Secondary malignant neoplasm of brain; E88.09 Other disorders of plasma-protein metabolism, not elsewhere classified; R79.89 Other specified abnormal findings of blood chemistry; R82.4 Acetonuria; R00.0 Tachycardia, unspecified; I10 Essential (primary) hypertension; E66.9 Obesity, unspecified; Z79.01 Long term (current) use of anticoagulants; Z79.899 Other long term (current) drug therapy; Z86.711 Personal history of pulmonary embolism; Z68.36 Body mass index [BMI] 36.0-36.9, adult
CPT/HCPCS: 70450; 71046; 73030; 85610; 96365; 96375; 99285; J1100; J1170; J1642; J1885; J2765; J3430; J7050